=== PATIENT | male | born 1995 | race Caucasian/White ===

== ENCOUNTER 2017-05-25 23:48 | Emergency (ER) | payer OTHER ==
[~2017-05-25] VITALS: Ht 170.2 cm; Wt 87.5 kg
[2017-05-25 23:51] VITALS: TEMP 37; Ht 170.2 cm; Wt 87.5 kg
[2017-05-26] MEDS ORDERED: XYLOCAINE 1%/SOD BICARB 20 ML VIAL INFIL ONE (00:04)
--- NOTE | 2017-05-26 00:44 | EMERGENCY ROOM VISIT NOTE ---
History Report prepared by Jen: Makeda Viera Under the Supervision of: Dr. Mac Oviedo D.O. First contact with patient: 23:56 Chief Complaint: LACERATION/CUT (SUT/DERMABOND) Stated Complaint: CUT HAND History of Present Illness The patient is a 21 year old male who presents to the Emergency Room with complaints of a laceration to the left hand DIRECTOR OF LOSS PREVENTION. The patient was opening a can when he cut his thumb on the can. He also cut his finger. The cut will not stop bleeding. He reports feeling a click when he extends his thumb. The patient is right handed. He does not have any other complaints. His tetanus is up to date. Source of History: patient Onset: DIRECTOR OF LOSS PREVENTION Position: hand (left) Quality: other (laceration) Timing: other (episodic) Note: Pt reports clicking in thumb, persistent bleeding. Review of Systems See HPI for pertinent positives & negatives. A total of 10 systems reviewed and were otherwise negative. Past Medical & Surgical Medical Problems: (1) No chronic problems Family History No pertinent family history stated. Social History Smoking Status: Current Some Day Smoker Marital Status: in relationship Occupation Status: [employer] student Physical Exam Vital Signs Date Time Temp Pulse Resp B/P (MAP) Pulse Ox O2 Delivery O2 Flow Rate FiO2 05/25/17 23:51 37.0 97 18 139/79 93 Room Air Physical Exam CONSTITUTIONAL/VITAL SIGNS: Reviewed / noted above. GENERAL: Non-toxic in appearance. INTEGUMENTARY: Warm, dry, and [place]. HEAD: Normocephalic. EYES: without scleral icterus or trauma. ENT/OROPHARYNX: clear and moist. LYMPHADENOPATHY/NECK: Is supple without lymphadenopathy or meningismus. RESPIRATORY: Lungs clear and equal. CARDIOVASCULAR: Regular rate and rhythm. GI/ABDOMEN: Soft and nontender. No organomegaly or pulsatile mass. No rebound or guarding. Normal bowel sounds. EXTREMITIES: Warm and well perfused. The left hand reveals a laceration overlying the MTP joint area on the palmar side, tendon is visualized, although no clear tendon injury is seen, the patient does have a new clicking noise with extension of his thumb, length of laceration is 2.5 cm, left index finger reveals a 1 cm laceration overlying the middle phalanx palmar side with brisk bleeding, no contamination. BACK: No CVA tenderness. NEUROLOGICAL: Intact without focal deficits. PSYCHIATRIC: normal affect. MUSCULOSKELETAL: Normally developed with good muscle tone. Medical Decision & Procedures Procedure Location: left hand Total length: 3.5 cm Complexity: simple Verbal consent was obtained after the risks and benefits were explained, including but not limited to bleeding, scarring, infection, pain, and bone/joint /nerve damage. At this time, the risks of the procedure are less than the risks of NOT performing the procedure. A time out was taken and the correct patient and site identified. The skin was prepped with betadine. The target area was anesthetized with 3 ml of 1% lidocaine without epinephrine. Copious irrigation was performed using NSS. The skin was re-prepped with betadine and a sterile field set. The wound was explored for foreign bodies and none found. Examination revealed no injury to deep structures such as tendons, bone, or significant blood vessels. Debridement was not performed. The wound edges were approximated using 5, 5-0 simple interrupted nylon sutures. Hemostasis and excellent approximation was achieved. Antibacterial ointment and a sterile dressing applied. Detailed wound care instructions and signs and symptoms of infection reviewed with the patient. No complications and the patient tolerated the procedure well. ED Course 2357: Previous medical records were reviewed. The patient was evaluated in room B7. A complete history and physical examination was performed. 0004: Lidocaine HCl 3 ml INFIL. 0005: The laceration was repaired according to the procedure note above. 0030: On reevaluation, the patient is resting comfortably. I discussed the results and findings with the patient. He verbalized agreement of the treatment plan. He was discharged home. Medical Decision Differential diagnosis: tendon, ligament, arterial injuries. This is a 21-year-old male who presents to the ED with a chief complaint of a left hand laceration. The patient states that he was carrying a can and lacerated his hand. The patient has 2 lacerations of the left hand. They're both on the palmar aspect, the one is overlying the proximal thumb in the area of the MCP joint. The tendon is visualized although no obvious injury is noted to the tendon, the patient does have a clicking noise noted with complete extension of the left thumb. This could indicate an injury. The patient was advised of this and is being referred to Dr. Macedo, hand surgery. The second laceration is in the left index finger noted above. This is a smaller laceration but may have a superficial arterial bleed. The patient's wounds were sutured. He is being referred to hand surgery for follow-up. He is to call tomorrow. He reports that his tetanus shot is up-to-date. Medication Reconcilliation Current Medication List: was personally reviewed by me Blood Pressure Screening Patient's blood pressure: Elevated blood pressure Blood pressure disposition: Elevated BP felt to be situational Impression Primary Impression: Hand laceration Additional Impression: Tendon laceration Scribe Attestation The scribe's documentation has been prepared under my direction and personally reviewed by me in its entirety. I confirm that the note above accurately reflects all work, treatment, procedures, and medical decision making performed by me. Departure Information Dispostion Home / Self-Care Referrals No Doctor, Assigned (PCP) Fortino Maddne MD Patient Instructions My [facility] Additional Instructions Follow-up with Dr. Madden (hand surgeon) for recheck of your thumb injury. You may have an injury to the tendon/ligament of that thumb. Call tomorrow for appointment. Sutures to be removed in 10-14 days. Return for any sign of infection (increasing redness, pain, swelling, discharge) . Take Tylenol/Motrin for pain as needed. Problem Qualifiers
[2017-05-26 00:54] VITALS: BP 136/71; PULSE 65; O2SAT 98
== END 2017-05-26 00:54 | disposition home or self-care (01) ==
LOC: C.EDB 23:51
DX: S61.412A Laceration without foreign body of left hand, initial encounter (principal); W45.8XXA Other foreign body or object entering through skin, initial encounter; F17.200 Nicotine dependence, unspecified, uncomplicated